=== PATIENT | female | born 2000 | race Asian ===

== ENCOUNTER 2019-04-21 13:10 | Emergency (ER) | payer OTHER ==
--- NOTE | 2019-04-21 13:40 | ED ---
Syncope/Near Syncope - HPI Summary HPI Summary: 18 year old F presenting to [facility] with a chief complaint of syncope earlier today. Patient reports heavy menstrual bleeding and pain for the last two days. The patient rates the pain 8/10 in severity. Symptoms aggravated by nothing. Symptoms alleviated by nothing. She denies hitting her head, any previous pelvic infections, or dysuria. She states that she has had syncope twice previously when she was 13 years old. She denies any history of diabetes, smoking, alcohol use, or recreational drug use. Medication list reviewed. Allergy list reviewed. Home Medications Medication Instructions Recorded Confirmed Type NK [No Home Medications Reported] 04/21/19 04/21/19 History - History Of Current Complaint Chief Complaint: EDSyncope Time Seen by Provider: 04/21/19 13:32 Hx Obtained From: Patient Onset/Duration: Sudden Onset Timing: Constant Context: Witnessed Associated Head Trauma: No Aggravating Factor(s): Nothing Alleviating Factor(s): Nothing Associated Signs And Symptoms: Pain - Menstrual, Other - Heavy menstrual bleeding - Allergies/Home Medications Allergies/Adverse Reactions: Allergies Allergy/AdvReac Type Severity Reaction Status Date / Time No Known Allergies Allergy Verified 04/21/19 13:29 Home Medications: Home Medications NK [No Home Medications Reported] 04/21/19 [History Confirmed 04/21/19] PMH/Surg Hx/FS Hx/Imm Hx Endocrine/Hematology History: Denies: Hx Diabetes EENT History: Denies: Hx Deafness Neurological History: Reports: Other Neuro Impairments/Disorders - Syncopal episodes - Surgical History Surgical History: None Infectious Disease History: No Infectious Disease History: Denies: Traveled Outside the [place] in Last 30 Days - Family History Known Family History: Positive: Hypertension, Diabetes - Social History Alcohol Use: None Hx Substance Use: No Substance Use Type: Reports: None Hx Tobacco Use: No Smoking Status (MU): Never Smoked Tobacco Review of Systems Positive: Other - Menstrual pain Positive: other - Heavy menstrual bleeding. Negative: dysuria Positive: Syncope All Other Systems Reviewed And Are Negative: Yes Physical Exam - Summary Physical Exam Summary: Constitutional: Well-developed, Well-nourished, Alert. (-) Distressed Skin: Warm, Dry HENT: Normocephalic; Atraumatic Eyes: Conjunctiva normal Neck: Musculoskeletal ROM normal neck. (-) JVD, (-) Stridor, (-) Tracheal deviation Cardio: Rhythm regular, rate normal, Heart sounds normal; Intact distal pulses; The pedal pulses are 2+ and symmetric. Radial pulses are 2+ and symmetric. (-) Murmur Pulmonary/Chest wall: Effort normal. (-) Respiratory distress, (-) Wheezes, (-) Rales Abd: Soft, mild generalized lower abdominal tenderness, (-) Distension, (-) Guarding, (-) Rebound Musculoskeletal: (-) Edema Lymph: (-) Cervical adenopathy Neuro: Alert, Oriented x3 Psych: Mood and affect Normal Triage Information Reviewed: Yes Vital Signs On Initial Exam: Initial Vitals Temp Pulse Resp BP Pulse Ox 98.0 F 55 15 109/72 99 04/21/19 13:24 04/21/19 13:24 04/21/19 13:24 04/21/19 13:24 04/21/19 13:24 Vital Signs Reviewed: Yes Procedures - Sedation Patient Received Moderate/Deep Sedation with Procedure: No Diagnostics - Vital Signs Vital Signs Temp Pulse Resp BP Pulse Ox 04/21/19 13:24 98.0 F 55 15 109/72 99 - Laboratory Result Diagrams: 04/21/19 14:28 04/21/19 14:28 Lab Statement: Any lab studies that have been ordered have been reviewed, and results considered in the medical decision making process. - EKG 13:44 Cardiac Rate: Bradycardia - 57 BPM EKG Rhythm: Sinus Bradycardia Summary of EKG Findings: Otherwise normal EKG. Dr. Chaudhry has reviewed and interpreted this EKG. Course/Dx Course Of Treatment: 18 year old F presenting to [facility] with a chief complaint of syncope earlier today. Patient reports heavy menstrual bleeding and pain for the last two days. Physical exam findings: mild generalized lower abdominal tenderness. An EKG reveals sinus bradycardia, rate of 57 BPM, otherwise normal EKG. Laboratory results with no significant abnormalities except for absolute lymphs of 0.7 and glucose of 135. In the ED course, the patient was given normal saline. [facility] The patient is agreeable with this plan. - Diagnoses Provider Diagnoses: Syncope, Heavy menstrual bleeding, Vaso vagal episode Discharge ED - Sign-Out/Discharge Documenting (check all that apply): Patient Departure - Discharge Plan Condition: Stable Disposition: HOME Patient Education Materials: Dysmenorrhea (ED), Syncope (ED) [facility] [Primary Care Provider] - If Needed Additional Instructions: Follow-up with the [facility] as needed. Return to the emergency department for changing or worsening symptoms. - Billing Disposition and Condition Condition: STABLE Disposition: Home - Attestation Statements Document Initiated by Scribe: Yes Documenting Scribe: Cathleen Pinto Provider For Whom Scribe is Documenting (Include Credential): Marty Chaudhry DO Scribe Attestation: Cathleen Bragg scribed for Marty Chaudhry DO on 04/21/19 at 1547. Scribe Documentation Reviewed: Yes Provider Attestation: The documentation as recorded by the Cathleen denis accurately reflects the service I personally performed and the decisions made by Marty bruce DO Status of Scribe Document: Viewed
[2019-04-21] MEDS ORDERED: NS 0.9% 1000 ML** 1,000 ML IV ONE (13:41)
[2019-04-21 14:45] LABS: ABS Lymphocytes 0.7 10^3/ul (1.0-4.8); ABS Monocytes 0.2 10^3/ul (0-0.8); Eosinophil % 0.3 %; Hematocrit 39 % (35-47); Hemoglobin 13.3 g/dL (12.0-16.0); Lymphocyte % 9.1 %; Mean Corpuscular HGB Conc 34 g/dL (31-36); Mean Corpuscular Hemoglobin 31 pg (27-31); Mean Corpuscular Volume 90 fL (80-97); Mean Platelet Volume 8.2 fL (7.4-10.4); Platelet Count 246 10^3/uL (150-450); Red Blood Count 4.34 10^6 /uL (3.70-4.87); Red Cell Distribution Width 13 % (10-15)
[2019-04-21 14:58] LABS: ALT 24 U/L (7-52); AST 21 U/L (13-39); Albumin 4.6 g/dL (3.2-5.2); Albumin/Globulin Ratio 1.9 (1-3); Alkaline Phosphatase 38 U/L (34-104); Anion Gap 4 mmol/L (2-11); BUN/Creatinine Ratio 14.9 (8-20); Blood Urea Nitrogen 11 mg/dL (6-24); CO2 Carbon Dioxide 31 mmol/L (22-32); Calcium 9.7 mg/dL (8.6-10.3); Chloride 103 mmol/L (101-111); EGFR African American 122.3 (>60); EGFR Non-African American 101.1 (>60); Globulin 2.4 g/dL (2-4); Glucose 135 mg/dL (70-100); Potassium 3.8 mmol/L (3.5-5.0); Sodium 138 mmol/L (135-145)
[2019-04-21 15:05] LABS: HCG Pregnancy < 0.60 mIU/mL
[2019-04-21 16:10] VITALS: BP 97/48
== END 2019-04-21 15:50 | disposition home or self-care (01) ==
LOC: ED 13:10
DX: R55 Syncope and collapse (principal); N92.0 Excessive and frequent menstruation with regular cycle; R00.1 Bradycardia, unspecified
CPT/HCPCS: 36415; 80053; 84702; 85025; 93005; 99283